=== PATIENT | female | born 1995 | race Caucasian/White ===

== ENCOUNTER 2022-01-01 06:02 | Inpatient (IN) | payer OTHER ==
[~2022-01-01] VITALS: Ht 175.3 cm; Wt 100.9 kg
[2022-01-01] VITALS (51 sets, daily range): BP systolic 107–156; BP diastolic 56–104; PULSE 57–131; TEMP 97.7–98.6
--- NOTE | 2022-01-01 06:30 | NUR ---
0630 - PATIENT AMBULATORY TO R5 ACCOMPANIED BY SPOUSE. PATIENT ORIENTED TO ROOM. PATIENT CHANGES INTO GOWN. 0640 - PLAN OF CARE REVIEWED. QUESTIONS ANSWERED. PATIENT ON MONITOR. 0655 - SVE /3. HILARIO CARE PERFORMED. 0710 - IV PLACED AND LABS DRAWN ORDERED. 0715 - CONSENTS REVIEWED AND SIGNED. 0750 - MD LUCRECIA AT BEDSIDE. 0754 - SVE PERFORMED BY MD LUCRECIA. AROM PERFORMED BY MD LUCRECIA.
[2022-01-01] MEDS ORDERED: NEXIUM 20MG20 MG PO (06:46)
[2022-01-01] MEDS ORDERED: PRENATAL TABLET PO (06:47)
[2022-01-01 07:33] LABS: BASO % 0.4 % (0.0-2.0); EOS # 0.1 K/mm3 (0.0-0.7); EOS % 0.6 % (0.0-4.0); GRAN # 6.7 K/mm3 (1.4-6.5); GRAN % 68.7 % (42.2-75.2); HEMOGLOBIN 10.9 g/dl (12.5-16.0); LYMPH # 2.2 K/mm3 (1.2-3.4); LYMPH % 22.6 % (20.0-51.0); MEAN CELL VOLUME 86 fl (80.0-100.0); MEAN CORPUSCULAR HEMOGLOBIN 29 pg (27-31); MEAN CORPUSCULAR HGB CONC 33 g/dl (33.0-37.0); MEAN PLATELET VOLUME 12.5 fl (7.4-10.4); MONO # 0.7 K/mm3 (0.1-0.6); MONO % 7.3 % (1.7-9.3); PLATELET COUNT 225 K/mm3 (130-400); RED BLOOD COUNT 3.82 M/mm3 (4.10-5.30); REDCELL DISTRIBUTION WIDTH-CV 13.1 % (11.5-14.5)
--- NOTE | 2022-01-01 10:30 | NUR ---
1010 - PATIENT REQUESTING EPIDURAL. CHUN CARMONA NOTIFIED FOR ANESTHESIA. 1015 - PATIENT POSITIONED SITTING EDGE OF BED FOR EPIDURAL PLACEMENT. LR BOLUS INITIATED. EFM TRACING INDESCERNIBILE DUE TO MATERNAL POSITION. EFM ADJUSTED. 1025 - CHUN CARMONA AT BEDSIDE. TIMEOUT COMPLETED. 1037 - TEST DOSE GIVEN BY CHUN. 1045 - PATIENT REPOSITIONED IN BED. WEDGE LEFT. VSS. CARE ONGOING.
--- NOTE | 2022-01-01 14:30 | NUR ---
1430 - PATIENT POSITIONED LEFT LATERAL SIDE LYING HIP RELEASE. 1440 - PATIENT POSITIONED RIGHT LATERAL SIDE LYING HIP RELEASE. 1500 - PATIENT POSITIONED SUPINE FOR EXAM. PATIENT THEN POSITIONED IN STEPHANIE SITTING UP. CARE ONGOING.
--- NOTE | 2022-01-01 22:10 | NUR ---
up to bathroom with standby assist. Voids 500cc. To room via wheelchair.
[2022-01-02 03:15] VITALS: BP 118/68; PULSE 72; TEMP 98.8
[2022-01-02 07:40] VITALS: BP 125/81; PULSE 77; TEMP 97.8
[2022-01-02] MEDS ORDERED: MOTRIN 800800 MG/TAB PO (10:12)
[2022-01-02 12:25] VITALS: BP 132/78; PULSE 70; TEMP 98.2
--- NOTE | 2022-01-02 12:47 | NUR ---
Grout Worker offered congrats to patient and spouse.
[2022-01-02 16:51] VITALS: BP 121/78; PULSE 87; TEMP 98.1
[2022-01-02 21:30] VITALS: BP 112/81; PULSE 82; TEMP 97.6
[2022-01-03 08:40] VITALS: BP 131/73; PULSE 67; TEMP 98.5
== END 2022-01-03 11:25 | disposition home or self-care (01) | DRG 807 ==
LOC: LDR 06:02 → OB 22:30
PROVIDERS: ADMIT Obstetrics & Gynecology
PROC: 10E0XZZ Delivery of Products of Conception, External Approach (ICD-10-PCS; principal; 2022-01-01)
PROC: 0KQM0ZZ Repair Perineum Muscle, Open Approach (ICD-10-PCS; 2022-01-01)
PROC: 3E033VJ Introduction of Other Hormone into Peripheral Vein, Percutaneous Approach (ICD-10-PCS; 2022-01-01)
DX: O99.824 Streptococcus B carrier state complicating childbirth (principal); Z37.0 Single live birth; O99.344 Other mental disorders complicating childbirth; F41.9 Anxiety disorder, unspecified; O70.1 Second degree perineal laceration during delivery; O99.62 Diseases of the digestive system complicating childbirth; K21.9 Gastro-esophageal reflux disease without esophagitis; O69.81X0 Labor and delivery complicated by cord around neck, without compression, not applicable or unspecified; O99.355 Diseases of the nervous system complicating the puerperium; G43.909 Migraine, unspecified, not intractable, without status migrainosus; Z3A.39 39 weeks gestation of pregnancy
CPT/HCPCS: J2405; J2540; J2590; J7120